=== PATIENT | female | born 1960 | race Caucasian/White ===

== ENCOUNTER → 2017-08-19 13:22 | Outpatient (CLI) | payer BC, SELFPAY ==
--- NOTE | 2017-08-19 13:25 | HPBI_ITS ---
MAMMOGRAPHY - BILATERAL SCREENING REASON FOR EXAM: Female, 57 years old. Routine annual screening examination. PERTINENT HISTORY: Mother with breast cancer. Remote bilateral excisional breast biopsies and right stereotactic breast biopsy. TECHNIQUE: Digital bilateral breast ami (3D mammographic acquisition) in the CC and MLO projections. 2-D mediolateral oblique (MLO) and craniocaudad (CC) views of both breasts were obtained. CAD: Full Field Digital Mammography with Computer Added Detection was performed. COMPARISON: Comparison is made with prior examination dated July 23, 2016 and July 11, 2015. FINDINGS: Breast Composition: There are scattered areas of fibroglandular density. There are no dominant masses or suspicious calcifications. A tissue clip marker is seen in the axillary region of the right breast. No other significant abnormalities are identified. There has been no significant change since the prior study. HPBI/SCREENING MAMM (CAD), BILAT IMPRESSION: Stable bilateral screening mammogram. Yearly follow-up mammogram recommended. (A) ASSESSMENT CATEGORY: BIRADS Category 2: Benign. A letter regarding these results will be sent to the patient by the facility within 30 days. Approximately 10% of breast cancers are not detected by mammography. A normal mammogram should not delay biopsy of a clinically suspicious abnormality. [id number] Electronically Signed: Sylvester Hughes MD at 15:12 EST Tel [phone], Service support ,
== END ==
PROVIDERS: Family Provider Preventive Medicine Occupational Medicine; PCP Preventive Medicine Occupational Medicine; Visit Provider Obstetrics & Gynecology
DX: Z12.31 Encounter for screening mammogram for malignant neoplasm of breast (principal)
CPT/HCPCS: 77063; 77067

== ENCOUNTER → 2017-08-19 13:55 | Outpatient (CLI) | payer BC, SELFPAY ==
[2017-08-22 20:08] LABS: HSV 1 By PCR Negative (Negative)
[2017-08-23 07:40] LABS: HSV 2 By PCR Positive (Negative)
== END ==
PROVIDERS: Visit Provider Obstetrics & Gynecology
DX: N76.6 Ulceration of vulva (principal)
CPT/HCPCS: 87529

== ENCOUNTER → 2018-09-21 12:33 | Outpatient (CLI) | payer BC, SELFPAY ==
--- NOTE | 2018-09-21 12:43 | BI_ITS ---
MAMMOGRAPHY - BILATERAL SCREENING REASON FOR EXAM: Female, 58 years old. Routine annual screening examination. PERTINENT HISTORY: Sister with breast cancer. Remote right stereotactic biopsy and left excisional breast biopsy. TECHNIQUE: Digital bilateral breast ami (3D mammographic acquisition) in the CC and MLO projections. 2-D mediolateral oblique (MLO) and craniocaudad (CC) views of both breasts were obtained. CAD: Full Field Digital Mammography with Computer Added Detection was performed. COMPARISON: Comparison is made with prior study dated August 19, 2017 and July 23, 2016. FINDINGS: Breast Composition: There are scattered areas of fibroglandular density. There are no dominant masses or suspicious calcifications. A tissue clip marker is once again seen in the axillary region of the right breast. No other significant abnormalities are identified. There has been no significant change since the prior study. BI/SCREENING MAMM (CAD), BILAT IMPRESSION: Stable bilateral screening mammogram. Yearly follow-up mammogram recommended. (A) ASSESSMENT CATEGORY: BIRADS Category 2: Benign. A letter regarding these results will be sent to the patient by the facility within 30 days. Approximately 10% of breast cancers are not detected by mammography. A normal mammogram should not delay biopsy of a clinically suspicious abnormality. [id number] Electronically Signed: Sylvester Hughes, at 14:52 EDT , Service support ,
== END ==
PROVIDERS: Family Provider Preventive Medicine Occupational Medicine; PCP Preventive Medicine Occupational Medicine; Visit Provider Obstetrics & Gynecology
DX: Z12.31 Encounter for screening mammogram for malignant neoplasm of breast (principal)
CPT/HCPCS: 77063; 77067

== ENCOUNTER → 2019-06-28 16:00 | Outpatient (CLI) | payer OTHER, SELFPAY ==
[2019-06-28 17:54] LABS: Ferritin 148 ng/mL (8-252)
[2019-06-28 18:04] LABS: Erythrocyte Sedimentation Rate 8 mm/hr (0-30)
[2019-06-30 14:05] LABS: Ceruloplasmin 27.1 mg/dL (19.0-39.0)
[2019-07-04 20:06] LABS: Alpha Antitrypsin Serum 81 mg/dL (101-187)
== END ==
PROVIDERS: Family Provider Preventive Medicine Occupational Medicine; PCP Preventive Medicine Occupational Medicine; Referring Provider Internal Medicine Gastroenterology; Visit Provider Internal Medicine Gastroenterology
DX: K75.9 Inflammatory liver disease, unspecified (principal)
CPT/HCPCS: 36415; 82103; 82104; 82390; 82728; 85652

== ENCOUNTER → 2019-09-01 13:42 | Outpatient (CLI) | payer OTHER, SELFPAY | PROVIDERS: PCP Preventive Medicine Occupational Medicine; Referring Provider Internal Medicine Gastroenterology; Visit Provider Internal Medicine Gastroenterology | DX: K75.9 Inflammatory liver disease, unspecified (principal) | CPT/HCPCS: 36415 ==

== ENCOUNTER → 2019-10-13 10:48 | Outpatient (CLI) | payer OTHER, SELFPAY ==
--- NOTE | 2019-10-13 10:51 | BI_ITS ---
MAMMOGRAPHY - BILATERAL SCREENING REASON FOR EXAM: Female, 59 years old. Routine annual screening examination. PERTINENT HISTORY: Mother with breast cancer. Remote right stereotactic and right excisional breast biopsies. Remote left excisional breast biopsy. TECHNIQUE: Digital bilateral breast violette (3D mammographic acquisition) in the CC and MLO projections. 2-D mediolateral oblique (MLO) and craniocaudad (CC) views of both breasts were obtained. CAD: Full Field Digital Mammography with Computer Added Detection was performed. COMPARISON: Comparison is made with prior examination dated September 21, 2018 and August 19, 2017. FINDINGS: Breast Composition: There are scattered areas of fibroglandular density. There are no dominant masses or suspicious calcifications. A tissue clip marker is once again seen in the axillary region of the right breast No other significant abnormalities are identified. There has been no significant change since the prior study. BI/SCREEN MAMM (CAD) W/VIOLETTE BILAT IMPRESSION: Stable bilateral screening mammogram. Yearly follow-up mammogram recommended. (A) ASSESSMENT CATEGORY: BIRADS Category 2: Benign. A letter regarding these results will be sent to the patient by the facility within 30 days. Approximately 10% of breast cancers are not detected by mammography. A normal mammogram should not delay biopsy of a clinically suspicious abnormality. [id number] Electronically Signed: Sylvester Hughes, at 13:50 EDT , Service support ,
--- NOTE | 2019-10-13 10:52 | BD_ITS ---
STUDY: DUAL ENERGY X-RAY ABSORPTIOMETRY / DXA REASON FOR EXAM: Female, 59 years old. Age of esau- 53. Pat is 147.2# and 62 and quot;. Pat takes a BP med with a diuretic in it. Does not exercise. Hx of surgery on L4-L5 for spinal stenosis. TECHNIQUE: Bone Mineral Density (BMD) measurements of lumbar spine and bilateral hips were obtained. COMPARISON: None. FINDINGS: Lumbar Spine (L1-L4): g/cm2 (1.315) / T-score (1.1) / Z-score (2.4) Findings are suggestive of normal bone density with a low fracture risk. Left Femur Total: g/cm2 (0.897) / T-score (-0.9) / Z-score (0.1) Left Femoral Neck: g/cm2 (0.823) / T-score (-1.5) / Z-score (-0.2) Right Femur Total: g/cm2 (0.921) / T-score (-0.7) / Z-score (0.3) Right Femoral Neck: g/cm2 (0.821) / T-score (-1.6) / Z-score (-0.3) BD/Dexa Bone Density Study IMPRESSION: The patient is considered osteopenic as outlined below according to World Asad Organization (WHO) criteria with a moderate fracture risk. Reference Information: The T-score is the number of standard deviations above or below the standard which is normal for young adults at their peak bone mineral density. The World Health Organization (WHO) interprets the T-scores as follows: Above -1 Normal bone density Between -1 and -2.5 Osteopenia Equal to / or below -2.5 Osteoporosis As a practical clinical guideline, osteopenia may be graded as follows: Mild -1 through -1.5 Moderate -1.6 through -2.0 Severe -2.1 through -2.4 The Z-score is the number of standard deviations above or below age-matched controls. A Z-score of less than -1.5 would be considered abnormal. References: 1. NIH Osteoporosis and Related Bone Diseases http://www.osteo.org 2. International Society for Clinical Densitometry http://www.iscd.org 3. National Osteoporosis Foundation http://www.nof.org Electronically Signed: Sylvester Hughes, at 12:51 EDT , Service support ,
== END ==
PROVIDERS: PCP Preventive Medicine Occupational Medicine; Referring Provider Obstetrics & Gynecology Gynecology; Visit Provider Obstetrics & Gynecology Gynecology
DX: Z12.31 Encounter for screening mammogram for malignant neoplasm of breast (principal); Z78.0 Asymptomatic menopausal state; Z13.820 Encounter for screening for osteoporosis
CPT/HCPCS: 77063; 77067; 77080

== ENCOUNTER → 2020-11-08 12:58 | Outpatient (CLI) | payer OTHER, SELFPAY ==
--- NOTE | 2020-11-08 13:00 | BI_ITS ---
MAMMOGRAPHY - BILATERAL SCREENING REASON FOR EXAM: Female, 60 years old. Routine annual screening examination. PERTINENT HISTORY: Mother with breast cancer. TECHNIQUE: Digital bilateral breast violette (3D mammographic acquisition) in the CC and MLO projections. 2-D mediolateral oblique (MLO) and craniocaudad (CC) views of both breasts were obtained. CAD: Full Field Digital Mammography with Computer Added Detection was performed. COMPARISON: Comparison is made with prior study dated 10/13/2019 and 09/21/2018. FINDINGS: Breast Composition: There are scattered areas of fibroglandular density. There are no dominant masses or suspicious calcifications. A tissue clip marker is seen in the upper lateral aspect of the right breast in the axillary region. No other significant abnormalities are identified. There has been no significant change since the prior study. BI/SCRN MAMM (CAD)W/VIOLETTE BILAT IMPRESSION: Stable bilateral screening mammogram. Yearly follow-up mammogram recommended. (A) ASSESSMENT CATEGORY: BIRADS Category 2: Benign. A letter regarding these results will be sent to the patient by the facility within 30 days. Approximately 10% of breast cancers are not detected by mammography. A normal mammogram should not delay biopsy of a clinically suspicious abnormality. [id number] Electronically Signed: Sylvseter Hughes MD at 14:16 EDT , Service support ,
== END ==
PROVIDERS: PCP Preventive Medicine Occupational Medicine; Referring Provider Obstetrics & Gynecology Gynecology; Visit Provider Obstetrics & Gynecology Gynecology
DX: Z12.31 Encounter for screening mammogram for malignant neoplasm of breast (principal)
CPT/HCPCS: 77063; 77067

== ENCOUNTER → 2021-11-14 | Outpatient (CLI) | payer OTHER, SELFPAY ==
--- NOTE | 2021-11-14 15:00 | BI_ITS ---
MAMMOGRAPHY - BILATERAL SCREENING REASON FOR EXAM: Female, 61 years old. Routine annual screening examination. PERTINENT HISTORY: Mother with breast cancer. Remote right excisional and left excisional breast biopsies as well as right stereotactic breast biopsy. TECHNIQUE: Digital bilateral breast violette (3D mammographic acquisition) in the CC and MLO projections. 2-D mediolateral oblique (MLO) and craniocaudad (CC) views of both breasts were obtained. CAD: Full Field Digital Mammography with Computer Added Detection was performed. COMPARISON: Comparison is made with prior study dated 11/08/2020 and 10/13/2019 FINDINGS: Breast Composition: There are scattered areas of fibroglandular density. There are no dominant masses or suspicious calcifications. A tissue clip marker is once again seen in the upper lateral aspect of the right breast No other significant abnormalities are identified. There has been no significant change since the prior study. BI/SCRN MAMM (CAD)W/VIOLETTE BILAT IMPRESSION: Stable bilateral screening mammogram. Yearly follow-up mammogram recommended. (A) ASSESSMENT CATEGORY: BIRADS Category 2: Benign. A letter regarding these results will be sent to the patient by the facility within 30 days. Approximately 10% of breast cancers are not detected by mammography. A normal mammogram should not delay biopsy of a clinically suspicious abnormality. [id number] Electronically Signed: Sylvester Hughes MD at 15:49 EDT ,
--- NOTE | 2021-11-14 15:08 | BD_ITS ---
STUDY: DUAL ENERGY X-RAY ABSORPTIOMETRY / DXA REASON FOR EXAM: Female, 61 years old. [id number]. The patient is postmenopausal. TECHNIQUE: Bone Mineral Density (BMD) measurements of lumbar spine and bilateral hips were obtained. COMPARISON: Comparison is made with prior study 10/13/2019. FINDINGS: Lumbar Spine (L1-L4): g/cm2 (1.169) / T-score (1.1) / Z-score (2.8) Findings are suggestive of normal bone density with a low fracture risk. Left Femur Total: g/cm2 (0.826) / T-score (-1.0) / Z-score (0.2) Left Femoral Neck: g/cm2 (0.620) / T-score (-2.1) / Z-score (-0.6) Right Femur Total: g/cm2 (0.864) / T-score (-0.6) / Z-score (0.5) Right Femoral Neck: g/cm2 (0.683) / T-score (-1.5) / Z-score (my 0.1) The T-Scores on the most recent prior examination were: Lumbar Spine (L1-L4): There has been no change of bone density since the previous examination. Left Femur Total: which represents a worsening of 1%. Right Femur Total: which represents an improvement of 0.7%. BD/Dexa Bone Density Study IMPRESSION: The patient is considered osteopenic as outlined below according to World Asad Organization (WHO) criteria with a high fracture risk. There has been worsening of bone density since the previous examination. Reference Information: The T-score is the number of standard deviations above or below the standard which is normal for young adults at their peak bone mineral density. The World Health Organization (WHO) interprets the T-scores as follows: Above -1 Normal bone density Between -1 and -2.5 Osteopenia Equal to / or below -2.5 Osteoporosis As a practical clinical guideline, osteopenia may be graded as follows: Mild -1 through -1.5 Moderate -1.6 through -2.0 Severe -2.1 through -2.4 The Z-score is the number of standard deviations above or below age-matched controls. A Z-score of less than -1.5 would be considered abnormal. References: 1. NIH Osteoporosis and Related Bone Diseases www osteo.org 2. International Society for Clinical Densitometry www iscd.org 3. National Osteoporosis Foundation www nof.org Electronically Signed: Sylvester Hughes MD at 14:05 EDT ,
== END | disposition home or self-care (01) ==
LOC: OPBI 14:55
PROVIDERS: PCP Preventive Medicine Occupational Medicine; Visit Provider Obstetrics & Gynecology Gynecology
DX: Z12.31 Encounter for screening mammogram for malignant neoplasm of breast (principal); Z80.3 Family history of malignant neoplasm of breast; Z78.0 Asymptomatic menopausal state
CPT/HCPCS: 77063; 77067; 77080

== ENCOUNTER → 2022-11-12 | Outpatient (CLI) | payer SELFPAY ==
--- NOTE | 2022-11-12 12:04 | BI_ITS ---
MAMMOGRAPHY - BILATERAL SCREENING REASON FOR EXAM: Female, 62 years old. Routine annual screening examination. PERTINENT HISTORY: Mother with breast cancer. Remote right stereotactic breast biopsy and right excisional breast biopsy. Occasional bilateral breast tenderness. TECHNIQUE: Digital bilateral breast violette (3D mammographic acquisition) in the CC and MLO projections. 2-D mediolateral oblique (MLO) and craniocaudad (CC) views of both breasts were obtained. CAD: Full Field Digital Mammography with Computer Added Detection was performed. COMPARISON: Comparison is made with prior examination of November 14, 2021 and November 08, 2020. FINDINGS: Breast Composition: There are scattered areas of fibroglandular density. There are no dominant masses or suspicious calcifications. A tissue clip marker is once again seen in the upper lateral aspect of the right breast No other significant abnormalities are identified. There has been no significant change since the prior study. BI/SCRN MAMM (CAD)W/VIOLETTE BILAT IMPRESSION: Stable bilateral screening mammogram. Yearly follow-up mammogram recommended. (A) ASSESSMENT CATEGORY: BIRADS Category 2: Benign. A letter regarding these results will be sent to the patient by the facility within 30 days. Approximately 10% of breast cancers are not detected by mammography. A normal mammogram should not delay biopsy of a clinically suspicious abnormality. [id number] Electronically Signed: Sylvester Hughes MD at 12:47 EDT ,
== END | disposition home or self-care (01) ==
PROVIDERS: PCP Preventive Medicine Occupational Medicine; Referring Provider Obstetrics & Gynecology Gynecology
DX: Z12.31 Encounter for screening mammogram for malignant neoplasm of breast (principal); Z80.3 Family history of malignant neoplasm of breast
CPT/HCPCS: 77063; 77067

== ENCOUNTER → 2023-07-24 | Outpatient (CLI) | payer MEDICARE, OTHER, SELFPAY ==
--- NOTE | 2023-07-24 09:54 | BI_ITS ---
MAMMOGRAPHY - BILATERAL SCREENING REASON FOR EXAM: Female, 63 years old. Routine annual screening examination. PERTINENT HISTORY: Mother with breast cancer. TECHNIQUE: Digital bilateral breast violette (3D mammographic acquisition) in the CC and MLO projections. 2-D mediolateral oblique (MLO) and craniocaudad (CC) views of both breasts were obtained. CAD: Full Field Digital Mammography with Computer Added Detection was performed. COMPARISON: Comparison is made with prior study dated November 12, 2022 and November 14, 2021. FINDINGS: Breast Composition: There are scattered areas of fibroglandular density. There are no dominant masses or suspicious calcifications. A tissue clip marker is once again seen in the upper lateral aspect of the right breast. No other significant abnormalities are identified. There has been no significant change since the prior study. BI/SCRN MAMM (CAD)W/VIOLETTE BILAT IMPRESSION: Stable bilateral screening mammogram. Yearly follow-up mammogram recommended. (A) ASSESSMENT CATEGORY: BIRADS Category 2: Benign. A letter regarding these results will be sent to the patient by the facility within 30 days. Approximately 10% of breast cancers are not detected by mammography. A normal mammogram should not delay biopsy of a clinically suspicious abnormality. [id number] Electronically Signed: Sylvester Hughes MD at 10:44 EST ,
--- OUTSIDE RECORDS SUMMARY | 2023-07-24 10:28 | XMS RPT_ITS | CCD ---
Author Name Unknown Address [address] [place] [address] Organization [facility] Care Team Providers Care Building Admin Name Role Phone Shelley Rodriguez Unavailable Unavailable Jazmin Benitez Unavailable Unavailable Harry Love Unavailable Unavailable Jazmin Benitez Unavailable Unavailable Unknown, Referring Provider Unavailable Unav ailable Lynne Bryant Unavailable Unavailable Marino Santo Unavailable Unavailable Jazmin Benitez Primary Care Provider [id number] 4-2015 Unavailable Primary Care Provider Unavailabl e JAZMIN BENITEZ DO Primary Care Physician Jazmin Benitez DO Primary Care Provider [phone] JAZMIN BENITEZ DO Primary Care Physician JAZMIN BENITEZ DO Attending Unavailable JAZMIN BENITEZ DO Primary Care Unavailable JAZMIN BENITEZ DO Attending Unavailable JAZMIN BENITEZ DO Primary Care Unavailable JAZMIN BENITEZ DO Primary Care Unavailable ERIK RODRIGUEZ Attending Unavail able JAZMIN BENITEZ DO Primary Care Unavailable LEO CAMPA Attending Unavailable JAZMIN BENITEZ DO Primary Care Unavailable MAINE PIERRE, ALVARADO Attending Unavailable JAZMIN BENITEZ DO Attending Unavailable JAZMIN BENITEZ DO Primary Care Unavailable Allergies Allergy Classification Reported Allergen(s) Allergy Type Date of Onset Reaction(s) Facility (11 sources) PARoxetine; Translations: [paroxetine] Drug Allergy 09-12-2020 Vomiting, Vomiting (disorder) [facility] (6 sources) PARoxetine Drug Allergy 03-31-2019 Itching [facility] (11 sources) telithromycin; Translations: [telithromycin] Drug Allergy 09-07-2019 Itching [facility] (4 sources) tolterodine Drug Allergy 09-26-2022 GI Upset [facility] Medications Current Medications Medication Drug Class(es) Dates Sig (Normalized) Sig (Original) ALPRAZolam 0.5 mg oral tablet (12 sources) Benzodiazepine Start: 06-11-2023 End: 08-10-2023 ALPRAZolam 0.5 mg oral tablet Dose : 0.5 mg = 1 tab(s), Oral, TID, PRN as needed for anxiety, # 90 tab(s), 1 Refill(s), Pharmacy: [id number], Chronic anxiety, 159, cm, 06/11/23 11:33:00 EST, Height, 64.5, kg, 06/11/23 11:33:00 EST, Dosing Weight Start Date: 06/11/23 Stop Date: 08/10/23 Status: Ordered Completed/Discontinued Medications Medication Drug Class(es) Dates Sig (Normalized) Sig (Original) cholecalciferol 0.05 mg oral capsule (5 sources) Vitamin D Cholecalciferol, Vitamin D3, 50 mcg (2,000 unit) cap Take 1,000 capsules by mouth. 0 Active Problems Active Problems Problem Classification Problem Date Documented Da te Episodic/Chronic Abdominal hernia (11 sources) Hiatal hernia; Translations: [Diaphragmatic hernia without obstruction or gangrene] Onset: 11-15-2021 11-15-2021 Episodic Anxiety disorders (11 sources) Chronic anxiety; Translations: [Anxiety disorder, unspecified] Onset: 11-15-2021 11-15-2021 Chronic Esophageal disorders (6 sources) Stricture of esophagus; Translations: [Gastroesophageal reflux disease] 08-26-2021 Chronic Essential hypertension (12 sources) Essential hypertension; Translations: [Essential (primary) hypertension] Onset: 11-15-2021 11-15-2021 Chronic Genitourinary symptoms and ill-defined conditions (1 source) Urinary incontinence; Translations: [Unspecified urinary incontinence] Chronic Heart valve disorders (11 sources) Mitral valve disorder; Translations: [Rheumatic mitral valve disease, unspecified] Onset: 11-15-2021 11-15-2021 Chronic Malaise and fatigue (7 sources) Fatigue; Translations: [Other fatigue] Episodic Menopausal disorders (5 sources) Menopausal symptom 10-04-2019 Chronic Nutritional deficiencies (2 sources) Vitamin D deficiency; Translations: [Vitamin D deficiency, unspecified] Chronic Open wounds of extremities (4 sources) Puncture wound without foreign body of unspecified finger without damage to nail, initial encounter; Translations: [Puncture wound of finger of right hand, initial encounter] Episodic Other bone disease and musculoskeletal deformities (1 source) Osteopenia; Translations: [Other specified disorders of bone density and structure, unspecified site] Episodic Other bone disease and musculoskeletal deformities (5 sources) Somatic dysfunction of lumbar region 05-31-2021 Episodic Other bone disease and musculoskeletal deformities (5 sources) Somatic dysfunction of sacral region 05-31-2021 Episodic Other connective tissue disease (11 sources) Foot pain; Translations: [Pain in unspecified foot] Onset: 11-15-2021 11-15-2021 Episodic Other disorders of stomach and duodenum (5 sources) Nonulcer dyspepsia 01-28-2022 Episodic Other endocrine disorders (2 sources) Disorder of endocrine system; Translations: [Endocrine disorder, unspecified] Episodic Other gastrointestinal disorders (5 sources) Diarrhea 05-15-2022 Episodic Other gastrointestinal disorders (3 sources) Pale feces 05-15-2022 Episodic Other hereditary and degenerative nervous system conditions (11 sources) Restless legs; Translations: [Restless legs syndrome] Onset: 11-15-2021 11-15-2021 Chronic Other nervous system disorders (4 sources) Post-surgery back pain 05-26-2022 Episodic Other nutritional; endocrine; and metabolic disorders (6 sources) Hypomagnesemia; Translations: [Hypomagnesemia] Chronic Other screening for suspected conditions (not mental disorders or infectious disease) (15 sources) Liver function tests abnormal; Translations: [Other specified abnormal findings of blood chemistry] Onset: 11-15-2021 11-15-2021 Episodic Skin and subcutaneous tissue infections (4 sources) Cellulitis of finger; Translations: [Cellulitis of right index finger] Episodic Spondylosis; intervertebral disc disorders; other back problems (11 sources) Degeneration of intervertebral disc; Translations: [Degeneration of intervertebral disc] Onset: 11-15-2021 11-15-2021 Chronic Spondylosis; intervertebral disc disorders; other back problems (20 sources) Neck pain; Translations: [Chronic low back pain] Onset: 11-11-2018 09-12-2019 Episodic Unclassified (5 sources) Osteoarthritis of joint of bilateral hands 01-06-2020 Unclassified (7 sources) Patient encounter status 07-17-2020 Urinary tract infections (5 sources) Bacterial urinary infection; Translations: [Urinary tract infection, site not specified] Onset: 12-22-2022 06-11-2023 Episodic Viral infection (1 source) Herpes simplex; Translations: [Herpesviral infection, unspecified] Episodic Past or Other Problems Problem Classification Problem Date Documented Da te Episodic/Chronic Genitourinary symptoms and ill-defined conditions (8 sources) Microscopic hematuria; Translations: [Other microscopic hematuria] Onset: 11-15-2021 11-15-2021 Episodic Other acquired deformities (10 sources) Acquired spondylolisthesis; Translations: [Spondylolisthesis, site unspecified] Onset: 09-12-2019 09-12-2019 Episodic NEGATED: Highlighted row has not occurred!Residual codes; unclassified (20 sources) Disease Episodic Results Test Name Value Interpretation Reference Range Facil ity Vital Signs Date Time Vital Sign Value Performing Clinician Faci lity 09-26-2022 10:40-0400 Body height 157.5 cm Eliz Nash MD Work Phone: [facility] 09-26-2022 10:40-0400 Body weight 64.86 kg Eliz Nash MD Work Phone: [facility] 09-26-2022 10:40-0400 Diastolic blood pressure 78 mm[Hg] Eliz Nash MD Work Phone: [facility] 09-26-2022 10:40-0400 Systolic blood pressure 112 mm[Hg] Eliz Nash MD Work Phone: [facility] 12-18-2021 11:46-0400 Diastolic blood pressure 76 mm[Hg] Tomy Anderson MD Work Phone: [facility] 12-18-2021 11:46-0400 Heart rate 57 /min Tomy Anderson MD Work Phone: [facility] 12-18-2021 11:46-0400 Respiratory rate 16 /min Tomy Anedrson MD Work Phone: [facility] 12-18-2021 11:46-0400 SaO2% (BldA) [Mass fraction] 99 % Tomy Anderson MD Work Phone: [facility] 12-18-2021 11:46-0400 Systolic blood pressure 131 mm[Hg] Tomy Anderson MD Work Phone: [facility] 12-18-2021 11:27-0400 Body temperature 97.5 [degF] Tomy Anderson MD Work Phone: [facility] 12-18-2021 10:36-0400 Body height 157.5 cm Tomy Anderson MD Work Phone: [facility] 12-18-2021 10:36-0400 Body mass index (BMI) [Ratio] 25.24 kg/m2 Tomy Anderson MD Work Phone: [facility] 12-18-2021 10:36-0400 Body weight 62.6 kg Tomy Anderson MD Work Phone: [facility] 11-11-2018 16:16-0400 BMI (Body Mass Index) 26.16 kg/m2 Jazmin [facility] Work Phone: 11-11-2018 16:16-0400 BP Diastolic 96 mm[Hg] Jazmin [facility] Work Phone: 11-11-2018 16:16-0400 BP Systolic 156 mm[Hg] Jazmin [facility] Work Phone: 11-11-2018 16:16-0400 BSA (Body Surface Area) 1.66 m2 Jazmin NGUYENZI-[facility]zdwcgbauk[facility]Ep sman Work Phone: 11-11-2018 16:16-0400 Height 157.48 cm Jazmin [facility] Work Phone: 11-11-2018 16:16-0400 Pulse (Heart Rate) 64 /min Jazmin [facility]GUY[facility] Work Phone: 11-11-2018 16:16-0400 Weight 64.86 kg Jazmin [facility] Work Phone: Encounters Encounter Date Encounter Type Care Provider Facility Start: 06-11-2023 End: 06-16-2023 ambulatory JAZMIN BENITEZ DO Facility:B Start: 06-11-2023 End: 06-15-2023 Outreach Lab JAZMIN BENITEZ DO [facility] Start: 04-30-2023 End: 05-01-2023 ambulatory JAZMIN BENITEZ DO Facility:B Start: 03-10-2023 End: 03-15-2023 ambulatory JAZMIN BENITEZ DO Facility:B Start: 12-22-2022 End: 12-27-2022 ambulatory JAZMIN BENITEZ DO Facility:B Start: 12-22-2022 End: 12-26-2022 Outreach Lab ERIK FUENTES [employer] ELIGIBILITY INTERVIEWER [facility] Start: 11-17-2022 Telephone encounter Eliz Nash MD Work Phone: [facility] Procedures Date Procedure Procedure Detail Performing Clinician Start: 12-18-2021 ENDOSCOPY REPORT Phy sician Generic Start: 12-10-2021 Calcium total Eli garcia PA-C Work Phone: Start: 11-14-2021 Mammography Eli Palomares ith PA-C Work Phone: Start: 09-25-2021 Adult depression scr eening assessment Eli Beckham PA-C Work Phone: Start: 09-07-2019 Colonoscopy Eli flores PA-C Work Phone: Start: 07-13-2003 Back structure, excl uding neck (body structure) JAZMIN BENITEZ Plan of Treatment Date Care Activity Detail Author Start: 04-12-2027 DTaP/Tdap/Td vaccine (2 - Td or Tdap) DTaP/Tdap/Td vaccine (2 - Td or Tdap) [facility] Start: 04-12-2027 Urine microalbumin profile DTA P,TDAP,TD (2 - Td or Tdap) [facility] Start: 09-25-2026 PAP TESTING PAP TESTING [facility] Start: 09-27-2023 BP CONTROLLED (<130/80) BP CONTROLLE D (<130/80) [facility] Start: 09-27-2023 COLORECTAL CANCER SCREENING COLORECTAL CANCER SCREENING [facility] Start: 09-27-2023 FECAL OCCULT BLOOD FECAL OCCULT BLOO D [facility] Start: 03-13-2023 Influenza vaccination INFLUENZA (Sea son Ended) [facility] Start: 01-09-2023 Influenza vaccination INFLUENZA (#1) [facility] Immunizations Immunization Date Immunization Notes Care Provider Fa cility 02-01-2021 zoster vaccine recombinant Eli Beckham PA-C Work Phone: [facility] Work Phone: 12-11-2020 zoster vaccine recombinant JAZMIN BENITEZ DO [facility] Payers Date Payer Category Payer Unknown [id number] 2023 Medicare [id number] 2022 Self-pay 2022 Unknown [id number] 2019 Unknown MMO MMO [employer] [id number] 2019-Present [phone] [place] [id number] PPO [id number] 2019 Unknown MMO MMO [employer] [id number] 2019-Present [phone] [address] [place] [address] PPO [id number] 2019 Unknown [id number] 1958 Unknown [id number] 1958 Unknown [id number] 1958 Unknown [id number] 1958 Unknown [id number] 1958 Unknown [id number] 1958 Unknown [id number] Social History Date Type Detail Facility Start: 03-31-2019 End: 06-28-2019 Tobacco smoking status NHIS Never smoked tobacco [facility] Functional Status Date Assessment Result Facility NEGATED: Highlighted row Functional performance Functional status health issues are not documented Disease FR[facility]Auou[facility]degw[facility] Work Phone: Mental Status Date Assessment Result Facility NEGATED: Highlighted row Cognitive function [Interpretation] Cognitive status health issues are not documented Disease XA-Zvhajrapnfjp-Cxm man Work Phone: Clinical Notes 09-25-2021 to 06-13-2023 Telephone Encounter - Melanie Calvin - 11/17/2022 12:57 PM EDTTelephone Encounter - Eliz Nash MD - 11/17/2022 12:22 PM EDTTelephone Encounter - Melanie Calvin - 11/17/2022 11:02 AM EDTInstructions Note Date & Type Note Facility 06-13-2023 Note . MICRO - Microbiology PROCEDURE: Urine Culture [*1] SOURCE: Urine, Clean Catch BODY SITE: COLLECTED DATE/TIME: 06/11/2023 13:12 EST RECEIVED DATE/TIME: 06/11/2023 19:14 EST START DATE/TIME: 06/11/2023 19:14 EST FREE TEXT SOURCE: FINAL REPORTS Final Report [] Verified Date/Time/Personnel: 06/13/2023 10:36 EST 10,000 - 50,000 cfu/ml Escherichia coli PRELIMINARY REPORTS Preliminary Report [] Verified Date/Time/Personnel: 06/12/2023 10:36 EST 10,000 - 50,000 cfu/ml Escherichia coli DOMINIQUE to follow SUSCEPTIBILITY RESULTS Escherichia coli Antibiotic DOMINIQUE Dilut DOMINIQUE Inter Ampicillin <=8 Susceptible Ampicillin/ <=4/2 Susceptible Sulbactam Aztreonam <=4 Susceptible Cefazolin <=2 Susceptible Ciprofloxacin <=0.25 Susceptible Ertapenem <=0.5 Susceptible Gentamicin <=2 Susceptible ID Panel Not Not Applicable Applicable Imipenem <=1 Susceptible Levofloxacin <=0.5 Susceptible Meropenem <=1 Susceptible Minocycline <=4 Susceptible Nitrofurantoin <=32 Susceptible Trimethoprim/ >2/38 Resistant Sulfa Performing Locations *1: This test was performed at: [address], [facility] ([place]) 03-11-2023 Note . MICRO - Microbiology PROCEDURE: Urine Culture [*1] SOURCE: Urine, Clean Catch BODY SITE: COLLECTED DATE/TIME: 03/10/2023 17:29 EDT RECEIVED DATE/TIME: 03/10/2023 19:12 EDT START DATE/TIME: 03/10/2023 19:12 EDT FREE TEXT SOURCE: FINAL REPORTS Final Report [] Verified Date/Time/Personnel: 03/11/2023 14:44 EDT 10,000 - 50,000 cfu/ml Mixed growth consistent with normal urogenital wendy. Performing Locations *1: This test was performed at: [address], [address] [place] [address] ([place]) 12-24-2022 Note . MICRO - Microbiology PROCEDURE: Urine Culture [*1] SOURCE: Urine, Clean Catch BODY SITE: COLLECTED DATE/TIME: 12/22/2022 17:21 EDT RECEIVED DATE/TIME: 12/22/2022 20:30 EDT START DATE/TIME: 12/22/2022 20:31 EDT FREE TEXT SOURCE: FINAL REPORTS Final Report [] Verified Date/Time/Personnel: 12/24/2022 08:03 EDT >100,000 cfu/ml Multiple bacterial morphotypes present. Probable Contamination. Suggest recollection if clinically indicated. PRELIMINARY REPORTS Preliminary Report [] Verified Date/Time/Personnel: 12/23/2022 13:59 EDT Culture results pending. Performing Locations *1: This test was performed at: [facility], [facility] [address] [place] [address], [id number] , [facility] ([place]) 11-17-2022 Miscellaneous Notes Left message to return call to office. Melanie Calvin This could be a side effect but should get better after 8 - 12 wks of use. Eliz Nash MD Pt states since using testosterone she is having breast tenderness and bloating and wondering if she should continue or if she could stop taking it. Pt wondering if that is a side effect of testosterone and if symptoms will resolve with time. OK to leave message. Melanie Calvin documented in this encounter [facility] 09-30-2022 Miscellaneous Notes The following approved medication requests have been transmitted electronically. Requested Prescriptions Signed Prescriptions Disp Refills testosterone, testosterone micronized (CPD) 60 Each 5 Sig: Testosterone Cream 1%: Apply 0.1ml to inner thigh QAM. May also apply to clitoris and labia 20 minutes prior to intercourse. Authorizing Provider: ELIZ NASH MD [facility] Pt notified of pap test results. She said that her mother and 1st cousin on fathers side had breast cancer. But she has not had breast cancer. Please send to [facility]. ----- Message from Eliz Nash MD sent at 09/29/2022 5:43 PM EDT ----- Pap test normal; HPV Is negative. repeat in 1 year. Eliz Nash MD [facility] Devora Tracy MA I don't see that the patient had breast cancer. Clearance would have to come from her breast surgeon or heme onc if she herself had breast cancer. If it is just family history of breast cancer and not the patient herself, she could try testosterone. Please clarify before I send in script to [facility]. Eliz Nash MD Pt does have a hx of breast cancer is she still able to have testosterone? Does she need to be careful about using the testosterone around her he is also on testosterone and didn't want to interfere somehow with his levels? Pt is okay with the [facility]. Left message to call back. Casie Alonzo Her DHEA was normal, so she can try testosterone thru a compounding pharmacy. Which compounding pharmacy does she want to use? [facility] [place] [facility] be her closest pharmacy. It can take 6-8 wks to reach steady state on her testosterone. She can plan a followup around 6-8 wks pending her response. Eliz Nash MD Pt would like to know what you think about her starting testosterone. She was told you guys would discuss it once her blood work came back. Pt wants to know if she should make an appt? Her takes testosterone are there any precautions she should take? She has several questions and really just wasn't sure what the plan was? documented in this encounter [facility] 09-30-2022 Miscellaneous Notes Left message to call back Casie Rosado ----- Message from Eliz Nash MD sent at 09/29/2022 5:43 PM EDT ----- Pap test normal; HPV Is negative. repeat in 1 year. Eliz Nash MD documented in this encounter [facility] 09-26-2022 History of Present illness Narrative SUBJECTIVE Velia Still is a 62 year old woman who presents for her annual exam: Last pap 10/01, Mammo [id number], Bone Density [id number], No LMP recorded (lmp unknown). Patient is postmenopausal.. Thinks she is having a herpes outbreak and she did not take the valtrex. Having frequent urination with a strong odor. retired, she quit work and is stressed; she has started exercising. She has gained wt. She is interested in diet. She has central wt gain. Incontinence is getting worse. Will rule out infection. Medications, Allergies, Surgeries, Family History updated and smoking status updated. Discussed health maintenance, including regular aerobic exercise, low fat diet, and periodic exams. HISTORIES FAMILY HISTORY Problem Relation Age of Onset Breast Cancer Mother 66 Heart disease Father Melanoma Sister 52 PAST MEDICAL HISTORY Diagnosis Date Depression Dyspepsia Esophageal dysphagia Fatigue Gastroesophageal reflux disease Generalized anxiety disorder Genital herpes Hepatitis, unspecified Hypertension Osteopenia 2020 Throat pain PAST SURGICAL HISTORY Procedure Laterality Date BACK SURGERY HX spinal stenosis BREAST BIOPSY 1999 benign x 3 2 L, 1 R SNGL COLONOSCOPY 2013 nl due in 10 yrs ESOPHAGOSCOPY FLEX BALLOON DILAT <30 MM DIAM 2020 stretched esophagus F EGD WITH DILATATION 12/27/2020 Dr. Jackson ACTIVE PROBLEM LIST Acquired Spondylolisthesis Neck Pain Abnormal Liver Function Tests Chronic Anxiety Degeneration of Intervertebral Disc Essential Hypertension Hiatal Hernia Low Back Pain Microscopic Hematuria Mitral Valve Disease Restless Legs Syndrome Pain of Foot ALLERGIES Allergen Reactions Telithromycin Itching Paroxetine Vomiting Paxil [Paroxetine H* Itching Current Outpatient Medications Medication Sig ketoconazole (NIZORAL) 2 % cream APPLY A THIN LAYER TO AFFECTED AREAS OF THE FACE ONCE A DAY NEEDED metroNIDAZOLE (METROGEL) 0.75 % Topical Gel APPLY A THIN LAYER TO FACE EVERY EVENING BEFORE BED omeprazole (PRILOSEC) 40 mg capsule 0 Refill(s) valACYclovir (VALTREX) 500 mg tablet 1 tablet twice daily x 3d as needed for outbreak ALPRAZolam (XANAX) 0.5 mg tablet Take 0.5 mg by mouth. PRN bisoprolol-hydrochlorothiazide (ZIAC) 2.5-6.25 mg per tablet Take 1 tablet by mouth once daily. No current facility-administered medications for this visit. REVIEW OF SYSTEMS GENERAL: No weight loss, malaise or fevers HEENT: No changes in hearing or vision NECK: Negative for lumps, goiter, pain and significant neck swelling RESPIRATORY: Negative for cough, wheezing, dyspnea or shortness of breath CARDIOVASCULAR: Negative for chest pain or palpitations GI: Negative for abdominal discomfort, blood in stools or black stools, change in bowel habit, diarrhea, nausea, vomiting, constipation : No history of dysuria, frequency or incontinence BACK FEEDER [place] LAYUP LINE: Negative for abnormal vaginal bleeding, abnormal vaginal discharge or Breast symptoms ENDOCRINE: Negative for cold or heat intolerance, polyuria, polydipsia and goiter NEURO: No history of headaches, syncope, paralysis, seizures or tremors OBJECTIVE urine dip: BP 112/78 Ht 5' 2 (1.58m) Wt 143 lb (64.9kg) BMI 26.15 kg/(m^2). HEENT: Within normal limits NECK: Supple, no thyromegaly BREASTS: No masses, no nipple discharge HEART: Regular rate and rhythm without murmur, rub, or gallop LUNGS: Clear bilaterally to auscultation ABDOMEN: No masses, non tender, no hernias, no hepatosplenomegaly PELVIC: EGBUS: L labia 3 herpes sores open; small amt of blood VAGINA: No discharge, no blood, no lesions CERVIX: No lesions, non tender UTERUS: Anteverted, normal size, non tender ADNEXA: Non tender, no masses RECTOVAGINAL: Neg for heme or mass (FIT) EXTREMITIES: No edema, no calf tenderness NEUROLOGICAL: Grossly intact ASSESSMENT/PLAN: 1. Gynecologic exam normal - ICD9: V72.31, ICD10: Z01.419 (primary diagnosis) - PAP REFLEX HPV MRNA WHEN ASCUS - MEDARDO SCREENING W VIOLETTE 2. Cervical cancer screening - ICD9: V76.2, ICD10: Z12.4 - PAP REFLEX HPV MRNA WHEN ASCUS 3. Breast cancer screening by mammogram - ICD9: V76.12, ICD10: Z12.31 - MEDARDO SCREENING W VIOLETTE 4. Urinary frequency - ICD9: 788.41, ICD10: R35.0 - URINE CULTURE 5. Bad odor of urine - ICD9: 791.9, ICD10: R82.90 - URINE CULTURE 6. Malaise and fatigue - ICD9: 780.79, ICD10: R53.81, R53.83 7. HSV infection - ICD9: 054.9, ICD10: B00.9 - VALACYCLOVIR 500 MG TABLET 8. Encounter for Pap smear of cervix with HPV DNA cotesting - ICD9: V76.2, ICD10: Z12.4 - HUMAN PAPILLOMA VIRUS, MRNA 9. Urinary incontinence, unspecified type - ICD9: 788.30, ICD10: R32 MD Casie Stubbs documented in this encounter [facility] 07-09-2022 Note ORIGINAL EXAMINATION: CT OF THE ABDOMEN AND PELVIS WITHOUT CONTRAST 07/09/2022 11:02 am TECHNIQUE: CT of the abdomen and pelvis was performed without the administration of intravenous contrast. Multiplanar reformatted images are provided for review. Automated exposure control, iterative reconstruction, and/or weight based adjustment of the mA/kV was utilized to reduce the radiation dose to as low as reasonably achievable. COMPARISON: 07/04/2019. HISTORY: ORDERING SYSTEM PROVIDED HISTORY: Reason for Exam: Gastro-esophageal reflux disease without esophagitis,Epigastric pain. FINDINGS: Mild dependent hypoventilatory changes are noted of the included lung parenchyma. Normal heart size. No pericardial effusion. The nonenhanced liver, spleen, pancreas, adrenal glands, and gallbladder are unremarkable. The visible distal esophagus, stomach, and duodenum are unremarkable in appearance. However, the stomach is under distended. Nonenhanced kidneys are similar in size bilaterally, without evidence of hydronephrosis. Prominent extrarenal pelvis noted on the right. No urolithiasis is evident. Unremarkable urinary bladder. Partially degenerated/calcified uterine fibroids are present. Pelvic phleboliths. Oral contrast is noted reaching the level of the mid to distal transverse colon. Mild volume stool is noted throughout the colon, otherwise normal in course and caliber. Normal appendix. The small bowel exhibits no acute abnormalities. No visible pathologic enlarged lymph nodes, free air, or free fluid. The aorta is atherosclerotic and nonaneurysmal. Unremarkable IVC. Tiny fat containing umbilical hernia. Degenerative changes are seen of the spine, sacroiliac joints, and hips. Grade 1 anterolisthesis noted of L4 on L5. No visible L4 pars defects. No visible aggressive osseous lesion. Lower lumbar laminectomy changes are also demonstrated. IMPRESSION: 1. No acute process within the abdomen or pelvis. Interpreted by: Andres Shultz DO Preliminary Report By: Andres Shultz DO Electronically signed By Andres Shultz DO Dictated Date: 07/09/2022 3:43:40 PM Prelim Date: 07/09/2022 3:55:41 PM Sign Date: 07/09/2022 3:55:41 PM Ordering Provider: [facility] 07-09-2022 Note ORIGINAL EXAMINATION: CT OF THE ABDOMEN AND PELVIS WITHOUT CONTRAST 07/09/2022 11:02 am TECHNIQUE: CT of the abdomen and pelvis was performed without the administration of intravenous contrast. Multiplanar reformatted images are provided for review. Automated exposure control, iterative reconstruction, and/or weight based adjustment of the mA/kV was utilized to reduce the radiation dose to as low as reasonably achievable. COMPARISON: 07/04/2019. HISTORY: ORDERING SYSTEM PROVIDED HISTORY: Reason for Exam: Gastro-esophageal reflux disease without esophagitis,Epigastric pain. FINDINGS: Mild dependent hypoventilatory changes are noted of the included lung parenchyma. Normal heart size. No pericardial effusion. The nonenhanced liver, spleen, pancreas, adrenal glands, and gallbladder are unremarkable. The visible distal esophagus, stomach, and duodenum are unremarkable in appearance. However, the stomach is under distended. Nonenhanced kidneys are similar in size bilaterally, without evidence of hydronephrosis. Prominent extrarenal pelvis noted on the right. No urolithiasis is evident. Unremarkable urinary bladder. Partially degenerated/calcified uterine fibroids are present. Pelvic phleboliths. Oral contrast is noted reaching the level of the mid to distal transverse colon. Mild volume stool is noted throughout the colon, otherwise normal in course and caliber. Normal appendix. The small bowel exhibits no acute abnormalities. No visible pathologic enlarged lymph nodes, free air, or free fluid. The aorta is atherosclerotic and nonaneurysmal. Unremarkable IVC. Tiny fat containing umbilical hernia. Degenerative changes are seen of the spine, sacroiliac joints, and hips. Grade 1 anterolisthesis noted of L4 on L5. No visible L4 pars defects. No visible aggressive osseous lesion. Lower lumbar laminectomy changes are also demonstrated. IMPRESSION: 1. No acute process within the abdomen or pelvis. Interpreted by: Andres Shultz DO Preliminary Report By: Andres Shultz DO Electronically signed By Andres Shultz DO Dictated Date: 07/09/2022 3:43:40 PM Prelim Date: 07/09/2022 3:55:41 PM Sign Date: 07/09/2022 3:55:41 PM Ordering Provider: ALVARADO GROVE [facility] 12-18-2021 Hospital Discharge instructions Jeff Gilliland RN - 12/18/2021 Upper GI Endoscopy: What to expect at home ACTIVITY: DO NOT DRIVE, OPERATE MACHINERY, OR DRINK ANY ALCOHOL TODAY. Avoid making critical decisions, signing legal documents, or performing any activity that requires alertness for the rest of the day. You may be bloated or have gas pains since air was introduced into the stomach for the procedure. You may need to pass the gas throughout the day. You may experience a mild sore throat. You may use an gipz-vnm-rrrooxs chloraseptic spray, gargle with warm salt water, or use throat lozenges. Notify your physician if this feeling lasts more than 48 hours. Rest the remainder of the day. You may resume normal activity tomorrow. You may return to work tomorrow. DIET: You may resume a normal diet unless notified or recommended by your physician. You may be eager to eat a large meal after fasting, but it is a good idea to start with light meals and ease into solid foods the first day. (*) If your stomach is upset, try clear liquids and bland, low-fat foods like plain toast or rice. Drink plenty of fluids for the first 24 hours (unless your physician states otherwise). MEDICATION: Resume your normal home medications unless notified or recommended by your physician. If you take blood thinners (such as Coumadin, Eliquis, Plavix, Aspirin, etc.) or anti-inflammatory medications (Advil, Motrin, Aleve, etc.), ask your physician when you may resume these medications. FOLLOW-UP APPOINTMENT: Follow up with or call your physician as needed. When to call for help: Call your doctor IMMEDIATELY or seek medical care if you experience: Severe pain or vomiting Coughing up more than a teaspoon of blood You pass a large amount of tar-like stools Your belly is swollen and firm with severe pain A fever greater than 101 degrees Redness or swelling of arm from the IV site for more than 48 hours Sudden onset of chest pain or shortness of breath If you become extremely dizzy or pass out (lose consciousness) IF YOU ARE UNABLE TO REACH YOUR PHYSICIAN GO TO NEAREST EMERGENCY DEPARTMENT documented in this encounter [facility] Work Phone: 12-18-2021 History of Present illness Narrative Dr Anderson in room talking to patient documented in this encounter [facility] Work Phone: 12-11-2021 Miscellaneous Notes Patient is aware. Casie Rosado December 11, 2021 1:07 PM Your calcium and vit D are normal. Eliz Nash MD documented in this encounter [facility] 11-18-2021 Miscellaneous Notes Patient is aware of results Casie Alonzo November 18, 2021 3:09 PM Your dexascan showed osteopenia; similar to the last exam in 2019. Recommend supplementing and checking your calcium and vitamin D levels. The FDA recommends between 1200-1500mg of calcium daily and 800-1000IUs of vitamin D3 daily. I've placed orders to check these labs and if you'd like to use our office lab you can call [phone] to schedule a lab visit. Recommend increasing weight bearing exercise, decreasing soda, caffeine, and alcohol. Repeat dexascan in 2 years. Eli Beckham PA-C documented in this encounter [facility] 09-25-2021 Note HNO ID: [id number] Author: Eliz Nash MD Service: ? Author Type: Physician Type: Progress Notes Filed: 09/25/2021 12:05 PM Note Text: TAMARA Still is a 61 year old woman who presents for her annual exam. Last pap- 09/12/20. Last mammo- 11/08/20 Last dexascan- 11/15/19. No LMP recorded (lmp unknown). Patient is postmenopausal. Denies vaginal itching, burning, discharge. Discussed health maintenance, including regular aerobic exercise, low sugar diet, and periodic exams. Declines flu vaccine.c/o urinary leaking. Timed voids and kegels discussed. Patient has no concerns. HISTORIES FAMILY HISTORY Problem Relation Age of Onset - Breast Cancer Mother 66 - Heart disease Father - Melanoma Sister 52 PAST MEDICAL HISTORY Diagnosis Date - Depression - Dyspepsia - Esophageal dysphagia - Fatigue - Gastroesophageal reflux disease - Generalized anxiety disorder - Genital herpes - Hepatitis, unspecified - Hypertension - Throat pain PAST SURGICAL HISTORY Procedure Laterality Date - BACK SURGERY HX spinal stenosis - BREAST BIOPSY 1999 benign x 3 2 L, 1 R - SNGL - COLONOSCOPY 2013 nl due in 10 yrs - ESOPHAGOSCOPY FLEX BALLOON DILAT <30 MM DIAM 2020 stretched esophagus - F EGD WITH DILATATION 12/27/2020 Dr. Jackson - HSV 1 AND 2 ABS PKG - HSV 2 IGG, TYPE SPECIFIC AB_*FL Social History Tobacco Use - Smoking status: Never Smoker - Smokeless tobacco: Never Used Substance Use Topics - Alcohol use: Yes - Drug use: Never ACTIVE PROBLEM LIST Acquired Spondylolisthesis Neck Pain ALLERGIES Allergen Reactions - Telithromycin Itching - Paroxetine Vomiting - Paxil [Paroxetine H* Itching Current Outpatient Medications Medication Sig - ketoconazole (NIZORAL) 2 % cream APPLY A THIN LAYER TO AFFECTED AREAS OF THE FACE ONCE A DAY NEEDED - metroNIDAZOLE (METROGEL) 0.75 % Topical Gel APPLY A THIN LAYER TO FACE EVERY EVENING BEFORE BED - omeprazole (PRILOSEC) 40 mg capsule 0 Refill(s) - valACYclovir (VALTREX) 500 mg tablet 1 tablet twice daily x 3d as needed for outbreak - ALPRAZolam (XANAX) 0.5 mg tablet Take 0.5 mg by mouth. PRN - bisoprolol-hydrochlorothiazide (ZIAC) 2.5-6.25 mg per tablet Take 1 tablet by mouth once daily. No current facility-administered medications for this visit. REVIEW OF SYSTEMS GENERAL: No weight loss, malaise or fevers HEENT: No changes in hearing or vision NECK: Negative for lumps, goiter, pain and significant neck swelling RESPIRATORY: Negative for cough, wheezing, dyspnea or shortness of breath CARDIOVASCULAR: Negative for chest pain or palpitations GI: Negative for abdominal discomfort, blood in stools or black stools, change in bowel habit, diarrhea, nausea, vomiting, constipation : No history of dysuria, frequency or incontinence BACK FEEDER [place] LAYUP LINE: Negative for abnormal vaginal bleeding, abnormal vaginal discharge or Breast symptoms ENDOCRINE: Negative for cold or heat intolerance, polyuria, polydipsia and goiter NEURO: No history of headaches, syncope, paralysis, seizures or tremors OBJECTIVE BP 120/80 Ht 5' 2 (1.58m) Wt 134 lb (60.8kg) BMI 24.50 kg/(m2). HEENT: Within normal limits NECK: Supple, no thyromegaly BREASTS: No masses, no nipple discharge HEART: Regular rate and rhythm without murmur, rub, or gallop LUNGS: Clear bilaterally to auscultation ABDOMEN: No masses, non tender, no hernias, no hepatosplenomegaly PELVIC: EGBUS: No lesions, normal appearance VAGINA: No discharge, no blood, no lesions CERVIX: No lesions, non tender UTERUS: Anteverted, normal size, non tender ADNEXA: Non tender, no masses RECTOVAGINAL: Neg for heme or mass (FIT) EXTREMITIES: No edema, no calf tenderness NEUROLOGICAL: Grossly intact ASSESSMENT/PLAN: 1. Gynecologic exam normal - ICD9: V72.31, ICD10: Z01.419 (primary diagnosis) - Completed pelvic and breast exam - Encouraged monthly BSE - Follow up for annual exam in one year. - PAP REFLEX HPV MRNA WHEN ASCUS - MEDARDO SCREENING W VIOLETTE 2. Cervical cancer screening - ICD9: V76.2, ICD10: Z12.4 - PAP REFLEX HPV MRNA WHEN ASCUS 3. Breast cancer screening by mammogram - ICD9: V76.12, ICD10: Z12.31 - MEDARDO SCREENING W VIOLETTE 4. Screening for osteoporosis - ICD9: V82.81, ICD10: Z13.820 - DXA-AXIAL SKELETON 5. Menopause - ICD9: 627.2, ICD10: Z78.0 - DXA-AXIAL SKELETON MD Arely Stubbs No follow-ups on file. [facility] Evaluation + Plan note Future Appointments Appointment Date:08/19/2022 09:30:00 AM Scheduled Provider:JAZMIN BENITEZ DO Location:[facility] Appointment Type:PC OV [facility] Evaluation + Plan note Future Appointments Appointment Date:08/19/2022 09:30:00 AM Scheduled Provider:JAZMIN BENITEZ DO Location:[facility] Appointment Type:PC OV Future Scheduled TestsXR Spine Lumbar W/Obliques 4 Views 05/26/22 [facility] Evaluation + Plan note Future Appointments Appointment Date:02/19/2023 11:00:00 AM Scheduled Provider:JAZMIN BENITEZ DO Location:[facility] Appointment Type:PC OV Future Scheduled TestsXR Spine Lumbar W/Obliques 4 Views 05/26/22 [facility] Evaluation + Plan note Future Appointments Appointment Date:09/10/2023 10:30:00 AM Scheduled Provider:JAZMIN BENITEZ DO Location:[facility] Appointment Type:PC OV [facility] documented in this encounter [facility] note* Diagnosis Gynecologic exam normal- Primary Cervical cancer screening Screening for malignant neoplasm of the cervix Breast cancer screening by mammogram Urinary frequency Bad odor of urine Other nonspecific finding on examination of urine Malaise and fatigue Other malaise and fatigue HSV infection Herpes simplex without mention of complication Encounter for Pap smear of cervix with HPV DNA cotesting Urinary incontinence, unspecified type Hormone imbalance Unspecified endocrine disorder Vitamin D deficiency Unspecified vitamin D deficiency documented in this encounter [facility] note* Diagnosis Hormone imbalance- Primary Unspecified endocrine disorder documented in this encounter [facility] course Narrative No data available for this section [facility] Discharge instructions No data available for this section [facility] Progress note No data available for this section [facility] Reason for referral (narrative)* Diagnostic Procedure Only (Routine) - Pending Review Specialty Diagnoses / Procedures Referred By Contac t Referred To Contact [facility] Diagnoses Gynecologic exam normal Breast cancer screening by mammogram Procedures MEDARDO SCREENING W VIOLETTE SCREENING DIGITAL BREAST TOMOSYNTHESIS BI SCREENING MAMMOGRAPHY BI 2-VIEW BREAST INC CAD Eliz Nash MD [address] [address] [facility] [address] [place] [address] Referral ID Status Reason Start Date Expiration Date Visits Requested Visits Authorized [id number] Pending Review Auto-Generat ed Referral 09/26/2022 10/26/2023 1 1 [facility] Summary Purpose Family History No Family History Records FoundNo Family History Records FoundNo Family History Records FoundNo Family History Records FoundNo Family History Records FoundNo Family History Records Found No data available for this section No Family History Records Found Advance Directives No Advanced Directives Records FoundLatest Code Status on File Code Status Date Activated Date Inactivated Comments Full Code 12/18/2021 10:22 AM Hospital Course Note Insurance Insurance reviewed Visit number: 13 of 30 Subjective Patient reports: Pt reports overall doing well with min to no pain just mild discomfort when rolling in bed.. Notes walking better and further then before. Notes improving strength. Feels more flexibility in her spine. Patient rates current pain 0/10 . Pain as high as 1/10. Home program performing as directed: Yes. Objective Ortho Strength Hip: ([place]: P! Denotes Pain with Movement) Flexion: 5/5 on right and 5/5 on left. Abduction: 5/5 on right and 5/5 on left. Adduction: 5/5 on right and 5/5 on left. Knee: ([place]: P! Denotes Pain with Movement) Knee extension was 5/5 on right, 5/5 on left. Knee flexion was 5/5 on right, 5/5 on left. Foot and Ankle: ([place]: P! Denotes Pain with Movement) Foot dorsiflexion was 4/5 on right, 5/5 on left. Foot plantar flexion was 5/5 on right, 5/5 on left. Outcome Measures Modified Oswestry Low Back Pain Disability Index score: 14% Abram Lumbar Assessment Standing Posture: good. Observ (more content not included)... Note Pre-procedure Verification a nd Time Out: Pre-Procedure Verification and Time Out: Procedure Locationprocedure area HUDDLE - Pre-procedure Verificationcompleted TIME OUT - Final Verificationcompleted DEBRIEFcompleted General Information: Anesthesia Critical Care: Non-Anesthesia Post-Procedure Diagnosis: na Procedure Name: US guided random liver biopsy Findings: grossly normal anatomy Procedure performed by: me Mid Level Practitioner(s): none Estimated Blood Loss (mL): none Specimen: yes Informed Consent: written consent obtained Procedure Details: Procedure Details: US guided random liver biopsy. 18G core x1 Tolerance: good Signature/Cosignature/Attestation: Note Completion: Attending AttestationI was present for the entire procedure Electronic Signatures: Jeff Cisneros) (Signed 15-Dec-2019 10:27) Authored: Pre- procedure Verification and Time Out, General Information, Procedure Details, Signature/Cosignature/Attestation Last Updated: 15-Dec-2019 10:27 by Jeff Cisneros) Procedure Findings Note Pre-procedure Verification a nd Time Out: Pre-Procedure Verification and Time Out: Procedure Locationprocedure area HUDDLE - Pre-procedure Verificationcompleted TIME OUT - Final Verificationcompleted DEBRIEFcompleted General Information: Anesthesia Critical Care: Non-Anesthesia Post-Procedure Diagnosis: na Procedure Name: US guided random liver biopsy Findings: grossly normal anatomy Procedure performed by: Mid Level Practitioner(s): none Estimated Blood Loss (mL): none Specimen: yes Informed Consent: written consent obtained Procedure Details: Procedure Details: US guided random liver biopsy. 18G core x1 Tolerance: good Signature/Cosignature/Attestation: Note Completion: Attending AttestationI was present for the entire procedure Electronic Signatures: Jeff Cisneros) (Signed 15-Dec-2019 10:27) Authored: Pre- procedure Verification and Time Out, General Information, Procedure Details, Signature/Cosignature/Attestation Last Updated: 15-Dec-2019 10:27 by Jeff Cisneros) Additional Source Comments INFORMATION SOURCE (unrecogn ized section and content) DATE CREATED AUTHOR AUTHOR'S ORGANIZ ATION 12/26/2019 [facility] DATE CREATED AUTHOR AUTHOR'S ORGANIZ ATION 05/28/2021 [facility] DATE CREATED AUTHOR AUTHOR'S ORGANIZ ATION 12/12/2021 [facility] DATE CREATED AUTHOR AUTHOR'S ORGANIZ ATION 12/23/2021 [facility] DATE CREATED AUTHOR AUTHOR'S ORGANIZ ATION 05/10/2022 [facility] DATE CREATED AUTHOR AUTHOR'S ORGANIZ ATION 06/16/2023 [facility] ([place]) Source Comments (unrecognize d section and content) In the event this informatio n is protected by the Federal Confidentiality of Alcohol and Drug Abuse Patient Records regulations: The Federal rules restrict any use of the information to criminally investigate or prosecute any alcohol or drug abuse patient.[facility] the event this information is protected by the Federal Confidentiality of Alcohol and Drug Abuse Patient Records regulations: The Federal rules restrict any use of the information to criminally investigate or prosecute any alcohol or drug abuse patient.[facility] the event this information is protected by the Federal Confidentiality of Alcohol and Drug Abuse Patient Records regulations: The Federal rules restrict any use of the information to criminally investigate or prosecute any alcohol or drug abuse patient.[facility] Hospital[facility] the event this information is protected by the Federal Confidentiality of Alcohol and Drug Abuse Patient Records regulations: The Federal rules restrict any use of the information to criminally investigate or prosecute any alcohol or drug abuse patient.[facility] Hospital[facility] the event this information is protected by the Federal Confidentiality of Alcohol and Drug Abuse Patient Records regulations: The Federal rules restrict any use of the information to criminally investigate or prosecute any alcohol or drug abuse patient.[facility] Hospital[facility] the event this information is protected by the Federal Confidentiality of Alcohol and Drug Abuse Patient Records regulations: The Federal rules restrict any use of the information to criminally investigate or prosecute any alcohol or drug abuse patient.[facility] Reason for Visit (unrecogniz ed section and content) 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 Patient Question Reason Comments Medication Problem Care Teams (unrecognized sec tion and content) Building Admin Relationship Specialty Start Date End Date Jazmin Benitez [address] [place] [address] PCP - General 04/05/04 Building Admin Relationship Specialty Start Date End [place] [address] PCP - General 04/05/04 Building Admin Relationship Specialty Start Date End [place] [address] PCP - General 04/05/04 Building Admin Relationship Specialty Start Date End [place] [address] PCP - General 04/05/04 Building Admin Relationship Specialty Start Date End [place] [address] PCP - General 04/05/04 Care Team (unrecognized sect ion and content) Care Team Personnel Name: ELI JAZMIN Position: P4 Physician - Primary Care Member Role: Primary Care Physician Address: Address: [address] [address] Care Team Related Persons Name: ROMY STILL Care Team Personnel Name: JAZMIN BENITEZ Position: P4 Physician - Primary Care Member Role: Primary Care Physician Address: Address: [address] [place] [address] Care Team Related Persons Name: ROMY STILL Care Team Personnel Name: JAZMIN BENITEZ Position: P4 Physician - Primary Care Member Role: Primary Care Physician Address: Address: [address] [place] [address] Care Team Related Persons Name: ROMY STILL FOR RECORDS PERTAINING TO PATIENTS WHO ARE OR HAVE BEEN ENROLLED IN A CHEMICAL DEPENDENCY/SUBSTANCEABUSE PROGRAM, SOME INFORMATION MAY BE OMITTED. This clinical summary was aggregated from multiple sources. Caution should be exercised in using it in the provision of clinical care. This summary normalizes information from multiple sources, and as a consequence, information in this document may materially change the coding, format and clinical context of patient data. In addition, data may be omitted in some cases. CLINICAL DECISIONS SHOULD BE BASED ON THE PRIMARY CLINICAL RECORDS. [employer] provides no warranty or guarantee of the accuracy or completeness of information in this document.
== END | disposition home or self-care (01) ==
LOC: OPBI 09:52
PROVIDERS: PCP Preventive Medicine Occupational Medicine; Referring Provider Obstetrics & Gynecology Gynecology; Visit Provider Obstetrics & Gynecology Gynecology
DX: Z12.31 Encounter for screening mammogram for malignant neoplasm of breast (principal); Z80.3 Family history of malignant neoplasm of breast
CPT/HCPCS: 77063; 77067

== ENCOUNTER → 2023-11-25 | Outpatient (CLI) | payer MEDICARE, OTHER, SELFPAY ==
--- NOTE | 2023-11-25 10:33 | BD_ITS ---
STUDY: DUAL ENERGY X-RAY ABSORPTIOMETRY / DXA REASON FOR EXAM: Female, 63 years old. Z780 TECHNIQUE: Bone Mineral Density (BMD) measurements of lumbar spine and bilateral hips were obtained. COMPARISON: Comparison is made with prior study November 14, 2021. FINDINGS: Lumbar Spine (L1-L4): g/cm2 (1.152) / T-score (1.0) / Z-score (2.8) Findings are suggestive of normal bone density with a low fracture risk. Left Femur Total: g/cm2 (0.780) / T-score (-1.3) / Z-score (-0.1) Left Femoral Neck: g/cm2 (0.548) / T-score (-2.7) / Z-score (-1.2) Right Femur Total: g/cm2 (0.822) / T-score (-1.0) / Z-score (0.3) Right Femoral Neck: g/cm2 (0.623) / T-score (-2.0) / Z-score (-0.5) The T-Scores on the most recent prior examination were: Lumbar Spine (L1-L4): There has been worsening of bone density since the previous examination. Left Femur Total: which represents a worsening of 5.5%. Right Femur Total: which represents a worsening of 4.9%. BD/Dexa Bone Density Study IMPRESSION: The patient is considered osteoporotic as outlined below according to World Asad Organization (WHO) criteria with a high fracture risk. There has been worsening of bone density since the previous examination. Reference Information: The T-score is the number of standard deviations above or below the standard which is normal for young adults at their peak bone mineral density. The World Health Organization (WHO) interprets the T-scores as follows: Above -1 Normal bone density Between -1 and -2.5 Osteopenia Equal to / or below -2.5 Osteoporosis As a practical clinical guideline, osteopenia may be graded as follows: Mild -1 through -1.5 Moderate -1.6 through -2.0 Severe -2.1 through -2.4 The Z-score is the number of standard deviations above or below age-matched controls. A Z-score of less than -1.5 would be considered abnormal. References: 1. NIH Osteoporosis and Related Bone Diseases www osteo.org 2. International Society for Clinical Densitometry www iscd.org 3. National Osteoporosis Foundation www nof.org Electronically Signed: Sylvester Hughes MD at 10:55 EDT ,
== END | disposition home or self-care (01) ==
PROVIDERS: PCP Preventive Medicine Occupational Medicine; Referring Provider Obstetrics & Gynecology Gynecology; Visit Provider Obstetrics & Gynecology Gynecology
DX: Z13.820 Encounter for screening for osteoporosis (principal); Z78.0 Asymptomatic menopausal state
CPT/HCPCS: 77080